=== PATIENT | female | born 1985 | race Caucasian/White ===

== ENCOUNTER 2020-02-16 14:56 | Emergency (ER) | payer OTHER ==
--- NOTE | 2020-02-16 15:39 | EDM.PDOC ---
ED HPI GENERAL MEDICAL PROBLEM - General Chief Complaint: Cardiovascular Problem Stated Complaint: RAPID HEART RATE Time Seen by Provider: 02/16/20 15:04 Source of Information: Reports: Patient, RN Notes Reviewed History Limitations: Reports: No Limitations - History of Present Illness INITIAL COMMENTS - FREE TEXT/NARRATIVE: Patient is a 34-year-old female presenting emergency department with complaints of a 3-week history of shortness of breath with exertion, fatigue, and palpitations. She was diagnosed as Covid positive back in December. She did have bilateral Covid pneumonia at that time. She states that she did recover and that beginning December she was feeling normal. Over the last 3 to 4 weeks, she has been having progressively increased shortness of breath mostly with exertion, as well as episodes of palpitations. She saw her hand sign writer last week. States blood work was completed including a D-dimer which was found to be elevated at 0.77. Her provider is not in the clinic today, but the on-call provider did recommend that she should have a CT scan done at some point. She states she also had a 48-hour Holter monitor applied which she returned this weekend. She has not had results on this at this point. She denies any significant chest pain. At the time of her evaluation she feels normal. She has no significant cardiac or respiratory history. - Related Data Allergies Allergy/AdvReac Type Severity Reaction Status Date / Time acetaminophen [From Tylenol] Allergy Other Verified 02/16/20 15:08 hydrocodone Allergy Cannot Verified 02/16/20 15:08 Remember Sulfa (Sulfonamide Allergy Cannot Verified 02/16/20 15:08 Antibiotics) Remember Home Meds: Home Meds . [No Known Home Meds] 02/16/20 [History] Past Medical History - Past Health History Medical/Surgical History: Denies Medical/Surgical History - Infectious Disease History Infectious Disease History: Reports: Novel Coronavirus Social & Family History - Tobacco Use Tobacco Use Status *Q: Former Tobacco User Used Tobacco, but Quit: Yes Month/Year Tobacco Last Used: 7 years ago - Caffeine Use Caffeine Use: Reports: Coffee - Recreational Drug Use Recreational Drug Use: No ED ROS GENERAL - Review of Systems Review Of Systems: See Below Constitutional: Reports: Fatigue. Denies: Fever, Chills HEENT: Reports: No Symptoms Respiratory: Reports: Shortness of Breath. Denies: Wheezing, Cough Cardiovascular: Reports: Dyspnea on Exertion. Denies: Chest Pain, Lightheadedness, Syncope Endocrine: Reports: Fatigue GI/Abdominal: Reports: No Symptoms : Reports: No Symptoms Musculoskeletal: Reports: No Symptoms Skin: Reports: No Symptoms Neurological: Reports: No Symptoms Psychiatric: Reports: No Symptoms Hematologic/Lymphatic: Reports: No Symptoms Immunologic: Reports: No Symptoms ED EXAM, GENERAL - Physical Exam Exam: See Below Exam Limited By: No Limitations General Appearance: Alert, WD/WN, No Apparent Distress Respiratory/Chest: No Respiratory Distress, Lungs Clear, Normal Breath Sounds, No Accessory Muscle Use, Chest Non-Tender Cardiovascular: Normal Peripheral Pulses, Regular Rate, Rhythm, No Edema, No Gallop, No JVD, No Murmur, No Rub GI/Abdominal: Normal Bowel Sounds, Soft, Non-Tender, No Organomegaly, No Distention, No Abnormal Bruit, No Mass Neurological: Alert, Oriented, CN II-XII Intact, Normal Cognition, Normal Gait, Normal Reflexes, No Motor/Sensory Deficits Psychiatric: Normal Affect, Normal Mood Skin Exam: Warm, Dry, Intact, Normal Color, No Rash Course - Vital Signs Last Recorded V/S: Last Vital Signs Temp 97.2 F 02/16/20 15:04 Pulse 73 02/16/20 15:04 Resp 16 02/16/20 15:04 BP 134/95 H 02/16/20 15:04 Pulse Ox 100 02/16/20 15:04 - Orders/Labs/Meds Orders: Active Orders 24 hr Category Date Time Status EKG Documentation Completion [RC] STAT Care 02/16/20 15:14 Active Chest PE [Ang Chest] [CT] Stat Exams 02/16/20 16:37 Taken Sodium Chloride 0.9% [Normal Saline] 100 ml Med 02/16/20 17:15 Active IV ASDIRECTED Medication Orders Sodium Chloride (Normal Saline) 100 mls @ 60 mls/hr IV ASDIRECTED SARA Last Admin: 02/16/20 17:05 Dose: 60 mls/hr Documented by: [email or web address] Labs: Laboratory Tests 02/16/20 02/16/20 02/16/20 Range/Units 15:42 15:42 15:42 WBC 7.11 (3.98-10.04) K/mm3 RBC 4.03 (3.98-5.22) M/mm3 Hgb 12.4 (11.2-15.7) gm/dl Hct 37.7 (34.1-44.9) % MCV 93.5 (79.4-94.8) fl MCH 30.8 (25.6-32.2) pg MCHC 32.9 (32.2-35.5) g/dl RDW Std Deviation 42.6 (36.4-46.3) fL Plt Count 217 (182-369) K/mm3 MPV 9.8 (9.4-12.3) fl Neut % (Auto) 49.4 (34.0-71.1) % Lymph % (Auto) 39.8 (19.3-51.7) % [place] % (Auto) 8.4 (4.7-12.5) % Eos % (Auto) 2.0 (0.7-5.8) Baso % (Auto) 0.3 (0.1-1.2) % Neut # (Auto) 3.51 (1.56-6.13) K/mm3 Lymph # (Auto) 2.83 (1.18-3.74) K/mm3 [place] # (Auto) 0.60 H (0.24-0.36) K/mm3 Eos # (Auto) 0.14 (0.04-0.36) K/mm3 Baso # (Auto) 0.02 (0.01-0.08) K/mm3 D-Dimer, Quantitative 0.51 H (0.19-0.50) mg/L Sodium 139 (136-145) mEq/L Potassium 3.8 (3.5-5.1) mEq/L Chloride 104 (98-107) mEq/L Carbon Dioxide 27 (21-32) mEq/L Anion Gap 11.8 (5-15) BUN 16 (7-18) mg/dL Creatinine 1.0 (0.55-1.02) mg/dL Est Cr Clr Drug Dosing 78.46 mL/min Estimated GFR (MDRD) > 60 (>60) mL/min BUN/Creatinine Ratio 16.0 (14-18) Glucose 114 H (74-106) mg/dL Calcium 8.8 (8.5-10.1) mg/dL Total Bilirubin 0.6 (0.2-1.0) mg/dL AST 13 L (15-37) U/L ALT 16 (14-59) U/L Alkaline Phosphatase 53 (46-116) U/L Troponin I < 0.017 (0.00-0.056) ng/mL C-Reactive Protein <0.2 (<1.0) mg/dL Total Protein 7.1 (6.4-8.2) g/dl Albumin 3.7 (3.4-5.0) g/dl Globulin 3.4 gm/dL Albumin/Globulin Ratio 1.1 (1-2) Meds: Medications Generic Name Dose Route Start Last Admin Trade Name Freq PRN Reason Stop Dose Admin Sodium Chloride 100 mls @ 60 mls/hr 02/16/20 17:15 02/16/20 17:05 Normal Saline IV 60 mls/hr ASDIRECTED SARA Administration Discontinued Medications Generic Name Dose Route Start Last Admin Trade Name Freq PRN Reason Stop Dose Admin Iopamidol 100 ml 02/16/20 17:03 02/16/20 17:04 Isovue-370 (76%) IVPUSH 02/16/20 17:04 100 ml ONETIME ONE Administration Sodium Chloride 10 ml 02/16/20 17:03 02/16/20 17:04 Saline Flush FLUSH 02/16/20 17:04 10 ml ONETIME ONE Administration - Re-Assessments/Exams Free Text/Narrative Re-Assessment/Exam: Patient is a 34-year-old female presenting to the emergency department with complaints of a 3 to 4-week history of shortness of breath with exertion as well as heart palpitations. She is post Covid. She was diagnosed at the beginning of December. States she was feeling much better at the beginning of December, however over the last 3 to 4 weeks her shortness of breath has returned in addition to palpitations. She saw her primary care provider last week. Blood work was completed and her D-dimer was found to be elevated at 0.77. She did a 48-hour Holter monitor but she has not received results for thus far. Oxygen saturation on triage is 100% on room air, and she is not tachycardic. I have ordered blood work including CBC, CMP, CRP, D-dimer, troponin, as well as an EKG and a chest x-ray. If there is any elevation in her D-dimer, we will complete a CT angiogram of her chest that she is quite concerned that she could have a blood clot in her lungs. 02/16/20 1635 Hematology was significant for a D-dimer very minimally elevated at 0.51, will my suspicion for a PE is quite low, we will complete a CT angiogram of her chest to rule out PE. 02/16/20 18:01 CT angiogram of the chest showed no acute findings. Recommend patient to follow-up with her primary care provider to discuss the Holter monitor results and for ongoing management. Return precautions discussed. Discharge instructions document. Departure - Departure Time of Disposition: 18:01 Disposition: Home, Self-Care 01 Condition: Good Clinical Impression: Palpitations, Shortness of breath Instructions: Shortness of Breath, Adult, [id number], Palpitations, [id number] Referrals: Dot Landers MD [Primary Care Provider] - Forms: ED Department Discharge Additional Instructions: You were seen in the emergency department today for evaluation with regards to 3 to 4-week history of palpitations and shortness of breath. Work-up included blood work, an EKG of your heart, chest x-ray, and a CT angiogram of your chest. Results of work-up were found to be overall normal. You do not have a blood clot in your lungs. Oxygen saturations throughout your stay in the ER was also normal. Recommend that you follow-up with your primary care provider to discuss the results of your Holter monitor and for ongoing management. If you experience any new or worsening symptoms of concern, please not hesitate to return to the emergency department. Sepsis Event Note (ED) - Evaluation Sepsis Screening Result: No Definite Risk - Focused Exam Vital Signs: Vital Signs Temp Pulse Resp BP Pulse Ox 02/16/20 15:04 97.2 F 73 16 134/95 H 100 - My Orders Last 24 Hours: My Active Orders 02/16/20 15:14 EKG Documentation Completion [RC] STAT 02/16/20 16:37 Chest PE [Ang Chest] [CT] Stat 02/16/20 17:15 Sodium Chloride 0.9% [Normal Saline] 100 ml IV ASDIRECTED - Assessment/Plan Last 24 Hours: My Active Orders 02/16/20 15:14 EKG Documentation Completion [RC] STAT 02/16/20 16:37 Chest PE [Ang Chest] [CT] Stat 02/16/20 17:15 Sodium Chloride 0.9% [Normal Saline] 100 ml IV ASDIRECTED
--- NOTE | 2020-02-16 15:44 | CR ---
PROCEDURE INFORMATION: Exam: XR Chest, 2 Views Exam date and time: 02/16/2020 3:23 PM Age: 34 years old Clinical indication: Shortness of breath TECHNIQUE: Imaging protocol: XR of the chest Views: 2 views. COMPARISON: DX Chest 2V 12/16/2019 10:03 AM FINDINGS: Lungs: Unremarkable. No consolidation. Pleural space: Unremarkable. No pleural effusion. No pneumothorax. Heart/Mediastinum: Unremarkable. No cardiomegaly. Bones/joints: Unremarkable. IMPRESSION: No acute findings. Thank you for allowing us to participate in the care of your patient. Dictated and Authenticated by: Terrence Elizabeth MD 02/16/2020 4:34 PM Central Time ([place] & [place]) ADDIE
[2020-02-16] MEDS ORDERED: Iopamidol 755 Mg/ML 100 ML Bottle IVPUSH ONE (17:03)
[2020-02-16] MEDS ORDERED: Sodium Chloride 0.9% 10 ML Syringe FLUSH ONE (17:03)
[2020-02-16] MEDS ORDERED: Sodium Chloride 0.9% 100 ML IV SCH (17:15)
--- NOTE | 2020-02-17 08:38 | CT ---
PROCEDURE INFORMATION: Exam: CT Angiography Chest With Contrast Exam date and time: 02/16/2020 4:48 PM Age: 34 years old Clinical indication: Dyspnea; Patient HX: SOB, elevated d-dimer TECHNIQUE: Imaging protocol: Computed tomographic angiography of the chest with intravenous contrast. 3D rendering (Not supervised by radiologist): MIP and/or 3D reconstructed images were created by the technologist. Radiation optimization: All CT scans at this facility use at least one of these dose optimization techniques: automated exposure control; mA and/or kV adjustment per patient size (includes targeted exams where dose is matched to clinical indication); or iterative reconstruction. Contrast material: ISOVUE 370; Contrast volume: 100 ml; Contrast route: INTRAVENOUS (IV); COMPARISON: DX Chest 2V 02/16/2020 3:23 PM FINDINGS: Pulmonary arteries: Normal. No pulmonary emboli. Aorta: Unremarkable. No aortic aneurysm. No aortic dissection. Lungs: Unremarkable. No consolidation. No masses. Pleural space: Unremarkable. No pneumothorax. No pleural effusion. Heart: Unremarkable. No cardiomegaly. No pericardial effusion. Lymph nodes: Unremarkable. No enlarged lymph nodes. Bones/joints: Unremarkable. No acute fracture. Soft tissues: Unremarkable. IMPRESSION: No acute findings. Thank you for allowing us to participate in the care of your patient. Dictated and Authenticated by: Terrence Elizabeth MD 02/16/2020 6:09 PM Central Time ([place] & [place]) [facility]
== END 2020-02-16 18:35 | disposition home or self-care (01) ==
LOC: JD.ED 14:56
DX: R00.2 Palpitations (principal); R06.02 Shortness of breath; Z88.6 Allergy status to analgesic agent; Z88.5 Allergy status to narcotic agent; Z88.2 Allergy status to sulfonamides; Z87.891 Personal history of nicotine dependence
CPT/HCPCS: 36415; 71046; 71275; 80053; 84484; 85025; 85379; 86140; 93005; 99285; Q9967; 93010; 99284

== ENCOUNTER 2020-08-04 13:40 | Emergency (ER) | payer OTHER ==
--- NOTE | 2020-08-04 14:33 | CT ---
Head CT Technique: Multiple axial sections through the brain were obtained. Intravenous contrast was not utilized. Reconstructed coronal and sagittal images were obtained. Comparison: No prior intracranial imaging is available. Findings: Ventricles along the basal cisterns and sulci over the convexities are within normal limits for the patient's age. Small subcortical calcification is seen within the left temporal lobe. Small subcortical calcification is seen within the upper right frontal region. No other abnormal parenchymal densities are seen. No evidence of intracranial hemorrhage. No midline shift or mass-effect is appreciated. Bone window settings were reviewed. Visualized mastoid sinuses and paranasal sinuses show nothing acute. No acute calvarial abnormality is appreciated. Impression: 1. Two small subcortical calcifications as noted above which are felt to be incidental. 2. No acute intracranial abnormality is appreciated on noncontrast head CT exam. Note: Please correlate of patient's symptoms warrant further evaluation by MRI. Diagnostic code #2
--- NOTE | 2020-08-04 14:35 | CR ---
Chest: PA and lateral views of the chest were obtained. Comparison: Prior chest x-ray of 12/16/19. Heart size and mediastinum are normal. Lungs are clear with no acute parenchymal change. Mild scoliosis is noted within the spine. No acute osseous abnormality is appreciated. Impression: 1. Nothing acute is seen on 2 view chest x-ray. Diagnostic code #2
[2020-08-04] MEDS ORDERED: Sodium Chloride 0.9% 10 ML Syringe FLUSH PRN ×2 (14:56→15:51)
[2020-08-04] MEDS ORDERED: Sodium Chloride 0.9% 1,000 ML IV ONE (15:03)
--- NOTE | 2020-08-04 15:05 | EDM.PDOC ---
ED HPI GENERAL MEDICAL PROBLEM - General Chief Complaint: Lower Extremity Injury/Pain Stated Complaint: LEFT LEG INJURY Time Seen by Provider: 08/04/20 13:48 Source of Information: Reports: Patient History Limitations: Reports: No Limitations - History of Present Illness INITIAL COMMENTS - FREE TEXT/NARRATIVE: The patient presents with left leg numbness. She said it started this morning. She has been having problems for months after getting COVID 19 in December. She had chest pain, shortness of breath and other problems. She is fatigued. She had to see cardiology. She says these symptoms come back at times. She has been having palpitations on and off and chest pain. She is short of breath at times. She does not have a fever or cough. She does have some fatigue again. She has no medical problems and she does not smoke. She has no weakness. She says her left leg just feels numb. She did have some low back pains at times. Onset: Gradual Duration: Hour(s): Location: Reports: Lower Extremity, Left Quality: Reports: Other (numbness) Severity: Mild Improves with: Reports: None Worsens with: Reports: None Associated Symptoms: Reports: No Other Symptoms Left Leg Pain Score (Numeric/FACES): 4 - Related Data Allergies Allergy/AdvReac Type Severity Reaction Status Date / Time acetaminophen [From Tylenol] Allergy Other Verified 08/04/20 15:51 hydrocodone Allergy Cannot Verified 08/04/20 15:51 Remember Sulfa (Sulfonamide Allergy Cannot Verified 08/04/20 15:51 Antibiotics) Remember Home Meds: Home Meds . [No Known Home Meds] 02/16/20 [History] Past Medical History - Past Health History Medical/Surgical History: Denies Medical/Surgical History - Infectious Disease History Infectious Disease History: Reports: Novel Coronavirus Social & Family History - Tobacco Use Tobacco Use Status *Q: Former Tobacco User Used Tobacco, but Quit: Yes Month/Year Tobacco Last Used: 04/2014 - Caffeine Use Caffeine Use: Reports: None - Recreational Drug Use Recreational Drug Use: No Review of Systems - Review of Systems Review Of Systems: See Below Constitutional: Reports: No Symptoms Ears: Reports: No Symptoms Nose: Reports: No Symptoms Mouth/Throat: Reports: No Symptoms Respiratory: Reports: Shortness of Breath Cardiovascular: Reports: Chest Pain GI/Abdominal: Reports: No Symptoms Genitourinary: Reports: No Symptoms Musculoskeletal: Reports: No Symptoms Skin: Reports: No Symptoms Neurological: Reports: Numbness (left leg). Denies: Weakness ED EXAM, GENERAL - Physical Exam Exam: See Below Exam Limited By: No Limitations General Appearance: Alert, No Apparent Distress Ears: Normal External Exam Nose: Normal Inspection Head: Atraumatic, Normocephalic Neck: Normal Inspection Respiratory/Chest: No Respiratory Distress, Lungs Clear, Normal Breath Sounds Cardiovascular: Regular Rate, Rhythm, No Edema, No Murmur GI/Abdominal: Soft, Non-Tender, No Organomegaly, No Mass Back Exam: Normal Inspection Extremities: Normal Inspection Neurological: Alert, Oriented, No Motor/Sensory Deficits #1 Interpretation EKG Date: 08/04/20 Time: 14:22 Rhythm: NSR Rate (Beats/Min): 59 Hope: Normal P-Wave: Present QRS: Normal ST-T: Normal QT: Normal Course - Vital Signs Last Recorded V/S: Last Vital Signs Temp 97 F 08/04/20 13:49 Pulse 55 L 08/04/20 15:15 Resp 12 08/04/20 15:15 BP 113/73 08/04/20 15:15 Pulse Ox 100 08/04/20 15:15 - Orders/Labs/Meds Orders: Active Orders 24 hr Category Date Time Status Cardiac Monitoring [RC] . DIRECTED Care 08/04/20 13:56 Active EKG Documentation Completion [RC] STAT Care 08/04/20 13:56 Active Peripheral IV Care [RC] . DIRECTED Care 08/04/20 14:56 Active Ang Chest [CT] Stat Exams 08/04/20 14:57 Taken VL Duplex Lwr Ext Veins Ltd Lt [US] Stat Exams 08/04/20 14:57 Taken Sodium Chloride 0.9% [Normal Saline] 100 ml Med 08/04/20 16:00 Active IV ASDIRECTED Sodium Chloride 0.9% [Saline Flush] Med 08/04/20 14:56 Active 10 ml FLUSH ASDIRECTED PRN Sodium Chloride 0.9% [Saline Flush] Med 08/04/20 15:51 Active 10 ml FLUSH ONETIME PRN Peripheral IV Insertion Adult [OM.PC] Routine Oth 08/04/20 14:56 Ordered Medication Orders Sodium Chloride (Normal Saline) 100 mls @ 60 mls/hr IV ASDIRECTED SARA Last Admin: 08/04/20 16:06 Dose: 60 mls/hr Documented by: [id number] Sodium Chloride (Sodium Chloride 0.9% 10 Ml Syringe) 10 ml FLUSH ASDIRECTED PRN PRN Reason: Keep Vein Open Last Admin: 08/04/20 15:13 Dose: 10 ml Documented by: [email or web address] Sodium Chloride (Sodium Chloride 0.9% 10 Ml Syringe) 10 ml FLUSH ONETIME PRN PRN Reason: Keep Vein Open Last Admin: 08/04/20 16:06 Dose: 10 ml Documented by: [id number] Labs: Laboratory Tests 08/04/20 08/04/20 08/04/20 Range/Units 14:12 14:12 14:12 WBC 9.73 (3.98-10.04) K/mm3 RBC 4.24 (3.98-5.22) M/mm3 Hgb 13.3 (11.2-15.7) gm/dl Hct 39.1 (34.1-44.9) % MCV 92.2 (79.4-94.8) fl MCH 31.4 (25.6-32.2) pg MCHC 34.0 (32.2-35.5) g/dl RDW Std Deviation 40.8 (36.4-46.3) fL Plt Count 239 (182-369) K/mm3 MPV 9.9 (9.4-12.3) fl Neut % (Auto) 50.4 (34.0-71.1) % Lymph % (Auto) 40.2 (19.3-51.7) % [place] % (Auto) 7.6 (4.7-12.5) % Eos % (Auto) 1.3 (0.7-5.8) Baso % (Auto) 0.3 (0.1-1.2) % Neut # (Auto) 4.90 (1.56-6.13) K/mm3 Lymph # (Auto) 3.91 H (1.18-3.74) K/mm3 [place] # (Auto) 0.74 H (0.24-0.36) K/mm3 Eos # (Auto) 0.13 (0.04-0.36) K/mm3 Baso # (Auto) 0.03 (0.01-0.08) K/mm3 D-Dimer, Quantitative 0.69 H (0.19-0.50) mg/L Sodium 140 (136-145) mEq/L Potassium 4.0 (3.5-5.1) mEq/L Chloride 104 (98-107) mEq/L Carbon Dioxide 27 (21-32) mEq/L Anion Gap 13.0 (5-15) BUN 16 (7-18) mg/dL Creatinine 1.5 H (0.55-1.02) mg/dL Est Cr Clr Drug Dosing 51.80 mL/min Estimated GFR (MDRD) 39 (>60) mL/min BUN/Creatinine Ratio 10.7 L (14-18) Glucose 80 (74-106) mg/dL Calcium 8.9 (8.5-10.1) mg/dL Magnesium 2.0 (1.8-2.4) mg/dl Total Bilirubin 0.5 (0.2-1.0) mg/dL AST 15 (15-37) U/L ALT 18 (14-59) U/L Alkaline Phosphatase 39 L (46-116) U/L Troponin I < 0.017 (0.00-0.056) ng/mL C-Reactive Protein 0.2 (<1.0) mg/dL Total Protein 7.5 (6.4-8.2) g/dl Albumin 3.6 (3.4-5.0) g/dl Globulin 3.9 gm/dL Albumin/Globulin Ratio 0.9 L (1-2) SARS-CoV-2 RNA (COREY) (NEGATIVE) 08/04/20 Range/Units 14:29 WBC (3.98-10.04) K/mm3 RBC (3.98-5.22) M/mm3 Hgb (11.2-15.7) gm/dl Hct (34.1-44.9) % MCV (79.4-94.8) fl MCH (25.6-32.2) pg MCHC (32.2-35.5) g/dl RDW Std Deviation (36.4-46.3) fL Plt Count (182-369) K/mm3 MPV (9.4-12.3) fl Neut % (Auto) (34.0-71.1) % Lymph % (Auto) (19.3-51.7) % [place] % (Auto) (4.7-12.5) % Eos % (Auto) (0.7-5.8) Baso % (Auto) (0.1-1.2) % Neut # (Auto) (1.56-6.13) K/mm3 Lymph # (Auto) (1.18-3.74) K/mm3 [place] # (Auto) (0.24-0.36) K/mm3 Eos # (Auto) (0.04-0.36) K/mm3 Baso # (Auto) (0.01-0.08) K/mm3 D-Dimer, Quantitative (0.19-0.50) mg/L Sodium (136-145) mEq/L Potassium (3.5-5.1) mEq/L Chloride (98-107) mEq/L Carbon Dioxide (21-32) mEq/L Anion Gap (5-15) BUN (7-18) mg/dL Creatinine (0.55-1.02) mg/dL Est Cr Clr Drug Dosing mL/min Estimated GFR (MDRD) (>60) mL/min BUN/Creatinine Ratio (14-18) Glucose (74-106) mg/dL Calcium (8.5-10.1) mg/dL Magnesium (1.8-2.4) mg/dl Total Bilirubin (0.2-1.0) mg/dL AST (15-37) U/L ALT (14-59) U/L Alkaline Phosphatase (46-116) U/L Troponin I (0.00-0.056) ng/mL C-Reactive Protein (<1.0) mg/dL Total Protein (6.4-8.2) g/dl Albumin (3.4-5.0) g/dl Globulin gm/dL Albumin/Globulin Ratio (1-2) SARS-CoV-2 RNA (COREY) Negative (NEGATIVE) Meds: Medications Generic Name Dose Route Start Last Admin Trade Name Freq PRN Reason Stop Dose Admin Sodium Chloride 100 mls @ 60 mls/hr 08/04/20 16:00 08/04/20 16:06 Normal Saline IV 60 mls/hr ASDIRECTED SARA Administration Sodium Chloride 10 ml 08/04/20 14:56 08/04/20 15:13 Sodium Chloride 0.9% 10 Ml Syringe FLUSH 10 ml ASDIRECTED PRN Administration Keep Vein Open Sodium Chloride 10 ml 08/04/20 15:51 08/04/20 16:06 Sodium Chloride 0.9% 10 Ml Syringe FLUSH 10 ml ONETIME PRN Administration Keep Vein Open Discontinued Medications Generic Name Dose Route Start Last Admin Trade Name Little PRN Reason Stop Dose Admin Sodium Chloride 1,000 mls @ 1,000 mls/hr 08/04/20 15:03 08/04/20 15:11 Normal Saline IV 08/04/20 16:02 1,000 mls/hr ONETIME ONE Administration Iopamidol 100 ml 08/04/20 15:51 08/04/20 16:05 Iopamidol 755 Mg/Ml 100 Ml Bottle IVPUSH 08/04/20 15:52 100 ml ONETIME ONE Administration - Re-Assessments/Exams Free Text/Narrative Re-Assessment/Exam: 08/04/20 15:09 I ordered an EKG, CXR, CT of her head, and labs. Her EKG shows a NSR with no acute changes. Her CBC was normal. Her D-dimer was 0.69. Her creatinine was elevated at 1.5. Her tropnonin is negative. Her CRP is normal. 08/04/20 16:36 I ordered an US of her left leg and it was negative for DVT. I also ordered a CT angio of her chest and that was negative for PE or anything else acute. I will have the patient follow up with Dr Mak in our clinic. She is very frustrated with how things have gone after COVID. She has been tired and short of breath and had palpitations. She did see cardiology and they wanted her to take a medication. She was concerned about the side effects. Departure - Departure Time of Disposition: 16:45 Disposition: Home, Self-Care 01 Condition: Good Clinical Impression: Palpitations, Shortness of breath, Left leg numbness, Elevated serum creatinine - Discharge Information *PRESCRIPTION DRUG MONITORING PROGRAM REVIEWED*: Not Applicable *COPY OF PRESCRIPTION DRUG MONITORING REPORT IN PATIENT NHI: Not Applicable Referrals: PCP,None [Primary Care Provider] - Le Mak MD [Physician] - 1 Week Forms: ED Department Discharge Additional Instructions: Try to take the medication the unionmelt operator prescribed. You may not have any of the side effects associated with the medications. If you do, you can stop the medication. Follow up with Dr Elizabeth in our clinic. Please return if you are worse. Your creatinine was elevated at 1.5 today. Normal for your age is around 1. Drink more fluids and have that rechecked in a week or two. Sepsis Event Note (ED) - Evaluation Sepsis Screening Result: No Definite Risk - Focused Exam Vital Signs: Vital Signs Temp Pulse Resp BP Pulse Ox 08/04/20 15:15 55 L 12 113/73 100 08/04/20 13:49 97 F 71 12 144/97 H 100 - My Orders Last 24 Hours: My Active Orders 08/04/20 13:56 Cardiac Monitoring [RC] . DIRECTED EKG Documentation Completion [RC] STAT 08/04/20 14:56 Peripheral IV Care [RC] . DIRECTED Sodium Chloride 0.9% [Saline Flush] 10 ml FLUSH ASDIRECTED PRN Peripheral IV Insertion Adult [OM.PC] Routine 08/04/20 14:57 Ang Chest [CT] Stat VL Duplex Lwr Ext Veins Ltd Lt [US] Stat 08/04/20 15:51 Sodium Chloride 0.9% [Saline Flush] 10 ml FLUSH ONETIME PRN 08/04/20 16:00 Sodium Chloride 0.9% [Normal Saline] 100 ml IV ASDIRECTED - Assessment/Plan Last 24 Hours: My Active Orders 08/04/20 13:56 Cardiac Monitoring [RC] . DIRECTED EKG Documentation Completion [RC] STAT 08/04/20 14:56 Peripheral IV Care [RC] . DIRECTED Sodium Chloride 0.9% [Saline Flush] 10 ml FLUSH ASDIRECTED PRN Peripheral IV Insertion Adult [OM.PC] Routine 08/04/20 14:57 Ang Chest [CT] Stat VL Duplex Lwr Ext Veins Ltd Lt [US] Stat 08/04/20 15:51 Sodium Chloride 0.9% [Saline Flush] 10 ml FLUSH ONETIME PRN 08/04/20 16:00 Sodium Chloride 0.9% [Normal Saline] 100 ml IV ASDIRECTED
[2020-08-04] MEDS ORDERED: Iopamidol 755 Mg/ML 100 ML Bottle IVPUSH ONE (15:51)
[2020-08-04] MEDS ORDERED: Sodium Chloride 0.9% 100 ML IV SCH (16:00)
--- NOTE | 2020-08-05 08:32 | US ---
Left lower extremity deep venous ultrasound: Duplex and color Doppler evaluation were obtained of the left common femoral, proximal greater saphenous, superficial femoral, popliteal, posterior tibial and peroneal veins. Right common femoral vein was also evaluated. Comparison: No prior venous imaging is available. Findings: Normal phasic flow, augmentation and compression is seen. Impression: 1. No evidence of deep venous thrombosis within the left lower extremity or within the right common femoral vein. Diagnostic code #1 I agree with preliminary report from [email or web address], finalized on 08/04/20, 5:25 PM CDT
--- NOTE | 2020-08-05 08:39 | CT ---
CT chest Technique: Multiple axial sections were obtained through the chest. Intravenous contrast was utilized. Study has been performed as a pulmonary angiogram protocol. Comparison: Prior chest x-ray of 08/04/20, no prior chest CT is available. Findings: Pulmonary arteries are fairly well opacified. No filling defects are seen to indicate pulmonary embolism. Thoracic aorta shows no aneurysm. No mediastinal adenopathy or mass is seen. No coronary artery calcification is noted. No pericardial thickening is seen. Small portion of the visualized upper abdominal structures shows nothing acute. Lung window settings were reviewed. No acute parenchymal change is seen. No pleural effusions or pneumothorax is seen. Bone window settings were reviewed which show no acute osseous abnormality. Impression: 1. No findings of pulmonary embolism. 2. Nothing acute is appreciated on CT study of the chest. Diagnostic code #1 I agree with preliminary report from [facility], finalized on 08/04/20, 5:24 PM CDT, code 1
== END 2020-08-04 17:00 | disposition home or self-care (01) ==
LOC: JD.ED 13:40
DX: R20.0 Anesthesia of skin (principal); R00.2 Palpitations; R06.02 Shortness of breath; R74.8 Abnormal levels of other serum enzymes; Z88.5 Allergy status to narcotic agent; Z88.8 Allergy status to other drugs, medicaments and biological substances; Z88.2 Allergy status to sulfonamides; Z87.891 Personal history of nicotine dependence; Z20.822 Contact with and (suspected) exposure to COVID-19
CPT/HCPCS: 36415; 70450; 71046; 71275; 80053; 83735; 84484; 85025; 85379; 86140; 87635; 93005; 93971; 99285; J7030; Q9967; 93010; 99284; U0002

== ENCOUNTER 2025-02-27 16:32 | Emergency (ER) | payer OTHER | END 2025-02-27 17:46 | disposition home or self-care (01) | LOC: JD.ED 16:32 | DX: G43.109 Migraine with aura, not intractable, without status migrainosus (principal); Z88.5 Allergy status to narcotic agent; Z88.2 Allergy status to sulfonamides; Z79.899 Other long term (current) drug therapy; Z86.16 Personal history of COVID-19 | CPT/HCPCS: 70450; 70450-26; 82947; 99284 ==